=== PATIENT | male | born 1960 | race Caucasian/White ===

== ENCOUNTER → 2017-05-26 | Outpatient (CLI) | payer MEDICARE ==
[~2017-05-26] MED LIST: ALBU18HF INH; ASPI325T17 PO; ASPI325T80 PO; ATOR40TA78 PO; CHLO4TAB22 PO; FOLI-17 PO; FURO-92 PO; FURO-93 PO; GABA300C10 PO; GABA800T2 PO; HYDR-3307 PO; LISI-170 PO; METF500T4 PO; PANT40TA3 PO; POTA10TA5 PO; SIME125T10 PO; THIA100T6 PO; THIA250T2 PO; TIOT18CA INH
== END | disposition home or self-care (01) ==
LOC: CVU 09:31
PROVIDERS: ATTEND Internal Medicine Cardiovascular Disease
DX: I70.0 Atherosclerosis of aorta (principal); I65.23 Occlusion and stenosis of bilateral carotid arteries; I74.5 Embolism and thrombosis of iliac artery; E11.9 Type 2 diabetes mellitus without complications; F17.290 Nicotine dependence, other tobacco product, uncomplicated
CPT/HCPCS: 93880; 93978

== ENCOUNTER → 2017-05-28 | Outpatient (CLI) | payer MEDICARE | END | disposition home or self-care (01) | LOC: CFH 16:00 | PROVIDERS: ATTEND Family Medicine | DX: M79.604 Pain in right leg (principal); E11.9 Type 2 diabetes mellitus without complications ==

== ENCOUNTER 2018-02-11 07:48 | Day surgery (SDC) | payer MEDICARE ==
[~2018-02-11] VITALS: Ht 185.4 cm; Wt 125.0 kg
[~2018-02-11 07:48] MED LIST changes: +ASPI-496 PO; +CLOP75TA PO; +LINA145C PO; -METF500T4 PO; +METF500T5 PO; +TIOT4MIS3 INH
[2018-02-11 09:00] VITALS: BP 143/80
[2018-02-11] MEDS ORDERED: LIDOCAINE-MPF 2% ,5ML ONE (09:49)
[2018-02-11] MEDS ORDERED: HEPARIN 1,000 UNITS/ML, 10ML ONE (10:06)
[2018-02-11] MEDS ORDERED: MIDAZOLAM 1 MG/ML, 5ML ONE (10:06)
[2018-02-11] MEDS ORDERED: FENTANYL PF 100 MCG/2ML ONE (10:06)
[2018-02-11] MEDS ORDERED: NITROGLYCERIN 5 MG/ML, 10ML ONE (10:06)
[2018-02-11] MEDS ORDERED: PROTAMINE SULFATE 10 MG/ML, 25ML ONE (10:06)
[2018-02-11] MEDS ORDERED: FLUMAZENIL 0.1 MG/1 ML, 5ML ONE (10:06)
[2018-02-11] MEDS ORDERED: NALOXONE 1 MG/ML, 2ML ONE (10:06)
[2018-02-11] MEDS ORDERED: VISIPAQUE 270 MG/ML, 50ML BOTTLE ONE (10:30)
[2018-02-11] MEDS ORDERED: SODIUM CHLORIDE 0.9% 1,000 ML IV SCH (12:28)
[2018-02-11] MEDS ORDERED: HYDROcodone/APAP 5/325 TABLET PO PRN (12:30)
[2018-02-11] MEDS ORDERED: ACETAMINOPHEN 650 MG/20.3 ML UDC PO PRN (12:30)
[2018-02-11] MEDS ORDERED: ONDANSETRON 2MG/ML, 2ML IV PRN (12:30)
== END 2018-02-11 17:00 | disposition home or self-care (01) ==
LOC: OUT 07:48
DX: I70.202 Unspecified atherosclerosis of native arteries of extremities, left leg (principal); J44.9 Chronic obstructive pulmonary disease, unspecified; E11.9 Type 2 diabetes mellitus without complications; E78.5 Hyperlipidemia, unspecified; I10 Essential (primary) hypertension; F17.210 Nicotine dependence, cigarettes, uncomplicated; Z79.82 Long term (current) use of aspirin; Z79.899 Other long term (current) drug therapy; Z88.0 Allergy status to penicillin; Z88.8 Allergy status to other drugs, medicaments and biological substances; Z98.890 Other specified postprocedural states; Z95.1 Presence of aortocoronary bypass graft; Z80.1 Family history of malignant neoplasm of trachea, bronchus and lung
CPT/HCPCS: 37225; 75630; 82962; 99156; 99157; C1714; C1725; C1751; C1769; C1884; C1894; C2623; J1644; J2250; J2310; J2720; J3010; J3490; Q9966

== ENCOUNTER 2018-05-05 09:57 | Day surgery (SDC) | payer MEDICARE ==
[~2018-05-05] VITALS: Ht 185.4 cm; Wt 128.4 kg
[~2018-05-05 09:57] MED LIST changes: +METF500T17 PO; -METF500T5 PO; -THIA100T6 PO; +THIA100T67 PO
[2018-05-05] MEDS ORDERED: LACTATED RINGERS 1,000 ML IV SCH (10:40)
[2018-05-05 10:43] VITALS: BP 122/76
[2018-05-05] MEDS ORDERED: NALO25TA PO (10:48)
[2018-05-05] MEDS ORDERED: DULO60CA55 PO (10:48)
[2018-05-05] MEDS ORDERED: LIDOCAINE-MPF 1%, 2ML ONE (10:50)
[2018-05-05] MEDS ORDERED: LIDOCAINE-MPF 1%, 2ML INFIL ONE (11:00)
[2018-05-05 11:27] LABS: ALBUMIN 3.9 g/dL (3.4-5.0); ANION GAP 9 mmol/L (5-15); CALCIUM 8.6 mg/dL (8.5-10.1); CHLORIDE 103 mmol/L (98-107)
[2018-05-05 11:30] LABS: ALANINE AMINOTRANSFERASE 34 U/L (12-78); ALKALINE PHOSPHATASE 112 U/L (45-117); BILIRUBIN,TOTAL 0.4 mg/dL (0.2-1.0); CREATININE 0.97 mg/dL (0.7-1.3); TOTAL PROTEIN 7.8 g/dL (6.4-8.2)
[2018-05-05] MEDS ORDERED: PROPOFOL 10 MG/ML, 50ML ONE (12:24)
[2018-05-05] MEDS ORDERED: FENTANYL PF 100 MCG/2ML IV PRN (13:00)
[2018-05-05] MEDS ORDERED: MIDAZOLAM 1 MG/ML, 2ML IV PRN (13:00)
[2018-05-05] MEDS ORDERED: ONDANSETRON 2MG/ML, 2ML IV PRN (13:00)
== END 2018-05-05 15:00 | disposition home or self-care (01) ==
LOC: OUT 09:57
PROVIDERS: ATTEND Internal Medicine
DX: K63.5 Polyp of colon (principal); D12.8 Benign neoplasm of rectum; E11.9 Type 2 diabetes mellitus without complications; J44.9 Chronic obstructive pulmonary disease, unspecified; E78.5 Hyperlipidemia, unspecified; F10.21 Alcohol dependence, in remission; Z98.62 Peripheral vascular angioplasty status
CPT/HCPCS: 36415; 45380; 45385; 80053; 82962; 88305; 93005; J2704; J3490; J7120

== ENCOUNTER → 2020-02-28 | Outpatient (CLI) | payer MEDICARE ==
[~2020-02-28] MED LIST changes: +DULO60CA56 PO; -GABA800T2 PO; +GABA800T5 PO; +HYDR-3246 PO; -HYDR-3307 PO; +NALO25TA PO
== END | disposition home or self-care (01) ==
LOC: CFH 09:00
PROVIDERS: ATTEND Registered Nurse
DX: Z12.2 Encounter for screening for malignant neoplasm of respiratory organs (principal); R91.1 Solitary pulmonary nodule; F17.211 Nicotine dependence, cigarettes, in remission; M43.8X4 Other specified deforming dorsopathies, thoracic region
CPT/HCPCS: G0297

== ENCOUNTER → 2020-04-13 | Outpatient (CLI) | payer MEDICARE | END | disposition home or self-care (01) | LOC: CVU 09:38 | PROVIDERS: ATTEND Internal Medicine Cardiovascular Disease | DX: I08.3 Combined rheumatic disorders of mitral, aortic and tricuspid valves (principal); I11.9 Hypertensive heart disease without heart failure | CPT/HCPCS: 93306 ==

== ENCOUNTER → 2020-12-27 | Outpatient (CLI) | payer MEDICARE ==
[~2020-12-27] MED LIST changes: -FOLI-17 PO; +FOLI1TAB32 PO; -HYDR-3246 PO; +HYDR-3248 PO; -NALO25TA PO; +NALO25TA4 PO; +OMNIPAQUE 350 MG/ML, 100ML BOTTLE ONE
== END | disposition home or self-care (01) ==
LOC: CFH 09:43
PROVIDERS: ATTEND Surgery
DX: I65.23 Occlusion and stenosis of bilateral carotid arteries (principal); I65.03 Occlusion and stenosis of bilateral vertebral arteries
CPT/HCPCS: 70496; 70498; Q9967

== ENCOUNTER 2021-01-25 18:39 | Inpatient (IN) | payer MEDICARE ==
[~2021-01-25] VITALS: Ht 185.4 cm; Wt 133.7 kg
[~2021-01-25 18:39] MED LIST changes: +ACET-1600 PO; +BUME2TAB3 PO; +LORA-247 PO; -OMNIPAQUE 350 MG/ML, 100ML BOTTLE ONE; +PREG150C PO; +VITAMIN B1 PO
--- NOTE | 2021-01-25 18:59 | NUR ---
n/a at triage 1850, n/a 1900 searched lobby and outside
--- NOTE | 2021-01-25 19:53 | NUR ---
SPOKE WITH WALLY PEREZ. PT HAD PROCEDURE AND IS CURRENTLY IN CCU
[2021-01-25] MEDS ORDERED: HYDROcodone/APAP 10/325 MG TABLET PO PRN (21:30)
[2021-01-25] MEDS ORDERED: PHENYLEPHRINE 50 MG in SODIUM CHLORIDE 0.9% 245 ML IV SCH (21:30)
[2021-01-25] MEDS ORDERED: ONDANSETRON 2MG/ML, 2ML IV PRN (21:30)
[2021-01-25] MEDS ORDERED: CHLORPHENIRAMINE 4 MG TABLET PO PRN (21:30)
[2021-01-25] MEDS ORDERED: ALBUTEROL SULFATE 2.5 MG/3 ML NPPB PRN ×2 (21:30→22:00)
[2021-01-25] MEDS ORDERED: ATORVASTATIN 80 MG TABLET PO SCH (21:30)
[2021-01-25] MEDS ORDERED: ALBUTEROL/IPRATROPIUM 2.5MG/0.5MG, 3 ML NPPB SCH (21:30)
[2021-01-25] MEDS: LACTATED RINGERS 1,000 ML IV SCH (21:30)
[2021-01-25] MEDS: PREGABALIN 150 MG CAPSULE PO SCH (21:50)
[2021-01-25] MEDS: INSULIN REGULAR, HUMAN 100 UNITS/ML, 3ML MEDIUM DOSE SS SQ-INSULIN SCH (21:51)
[2021-01-25] MEDS: SIMETHICONE 80 MG CHEW TAB PO PRN (21:55)
[2021-01-25] MEDS: ALBUTEROL/IPRATROPIUM 2.5MG/0.5MG, 3 ML NPPB SCH (22:00)
[2021-01-26] MEDS: ALBUTEROL/IPRATROPIUM 2.5MG/0.5MG, 3 ML NPPB SCH ×3 (02:23→16:40)
[2021-01-26] MEDS ORDERED: ALBUTEROL/IPRATROPIUM 2.5MG/0.5MG, 3 ML NPPB SCH (03:00)
[2021-01-26] MEDS: HEPARIN 5,000 UNITS/ML, 1ML SQ SCH ×2 (05:14→14:15)
[2021-01-26] MEDS ORDERED: ASPIRIN 81 MG TABLET EC PO SCH (06:00)
[2021-01-26] MEDS: INSULIN REGULAR, HUMAN 100 UNITS/ML, 3ML MEDIUM DOSE SS SQ-INSULIN SCH ×2 (07:00→11:00)
[2021-01-26] MEDS: LACTATED RINGERS 1,000 ML IV SCH (07:30)
[2021-01-26] MEDS: PREGABALIN 150 MG CAPSULE PO SCH ×2 (08:30→16:28)
[2021-01-26] MEDS: SIMETHICONE 80 MG CHEW TAB PO PRN (08:31)
[2021-01-26] MEDS ORDERED: BUMETANIDE 1 MG TABLET PO SCH (09:00)
[2021-01-26] MEDS ORDERED: DULOXETINE 30 MG CAPSULE.DR PO SCH (09:00)
[2021-01-26] MEDS ORDERED: CLOPIDOGREL 75 MG TABLET PO SCH (09:00)
[2021-01-26] MEDS ORDERED: LORATADINE 10 MG TABLET PO SCH (09:00)
[2021-01-26] MEDS ORDERED: THIAMINE 100MG TABLET PO SCH (09:00)
[2021-01-26] MEDS ORDERED: ATORVASTATIN 80 MG TABLET PO SCH (21:00)
[2021-01-26] MEDS ORDERED: LISINOPRIL 20 MG TABLET PO SCH (21:30)
== END 2021-01-26 17:53 | disposition home or self-care (01) | DRG 36 ==
LOC: ED 18:50 → EDIP 19:39 → CCU 19:44
PROVIDERS: ADMIT Surgery; ATTEND Surgery
PROC: 037K3DZ Dilation of Right Internal Carotid Artery with Intraluminal Device, Percutaneous Approach (ICD-10-PCS; principal; 2021-01-24)
PROC: B44LZZZ Ultrasonography of Femoral Artery (ICD-10-PCS; 2021-01-24)
PROC: B41F1ZZ Fluoroscopy of Right Lower Extremity Arteries using Low Osmolar Contrast (ICD-10-PCS; 2021-01-24)
PROC: B3131ZZ Fluoroscopy of Right Common Carotid Artery using Low Osmolar Contrast (ICD-10-PCS; 2021-01-24)
PROC: B3161ZZ Fluoroscopy of Right Internal Carotid Artery using Low Osmolar Contrast (ICD-10-PCS; 2021-01-24)
PROC: 03HB33Z Insertion of Infusion Device into Right Radial Artery, Percutaneous Approach (ICD-10-PCS; 2021-01-25)
PROC: B34HZZZ Ultrasonography of Right Upper Extremity Arteries (ICD-10-PCS; 2021-01-25)
DX: I65.21 Occlusion and stenosis of right carotid artery (principal); E66.01 Morbid (severe) obesity due to excess calories; J44.9 Chronic obstructive pulmonary disease, unspecified; I95.9 Hypotension, unspecified; I10 Essential (primary) hypertension; E11.51 Type 2 diabetes mellitus with diabetic peripheral angiopathy without gangrene; Z68.38 Body mass index [BMI] 38.0-38.9, adult; Z88.1 Allergy status to other antibiotic agents; I70.212 Atherosclerosis of native arteries of extremities with intermittent claudication, left leg; Z99.81 Dependence on supplemental oxygen
CPT/HCPCS: 36415; 37215; 71046; 80053; 82962; 85025; 85347; 87081; 93005; 94640; 99285; C1725; C1894; G0378; J0690; J1644; J2250; J3010; U0005; C1751; C1760; C1769; C1876; C1884; J0360; J2370; J7050; J7120; U0003

== ENCOUNTER → 2021-03-11 | Outpatient (CLI) | payer MEDICARE | END | disposition home or self-care (01) | LOC: CFH 10:39 | PROVIDERS: ATTEND Registered Nurse | DX: Z12.2 Encounter for screening for malignant neoplasm of respiratory organs (principal); R91.8 Other nonspecific abnormal finding of lung field; Z87.891 Personal history of nicotine dependence | CPT/HCPCS: 71271 ==

== ENCOUNTER → 2021-04-09 | Outpatient (CLI) | payer MEDICARE ==
[~2021-04-09] MED LIST changes: +REGADENOSON 0.4 MG/5 ML SYRINGE ONE
== END | disposition home or self-care (01) ==
LOC: CFH 08:03
PROVIDERS: ATTEND Internal Medicine Cardiovascular Disease
DX: I10 Essential (primary) hypertension (principal); I70.208 Unspecified atherosclerosis of native arteries of extremities, other extremity
CPT/HCPCS: 78452; 93017; A9502; J2785